=== PATIENT | male | born 1970 | race Caucasian/White ===

== ENCOUNTER 2019-04-28 18:59 | Emergency (ER) | payer SELFPAY ==
[2019-04-28] VITALS (24 sets, daily range): BP systolic 106–152; BP diastolic 68–92; PULSE 64–87; RESP 18–20; TEMP 37.6; O2SAT 94–98
--- NOTE | 2019-04-28 19:10 | DI.CT_ITS ---
SYMPTOM/DIAGNOSIS: CRUSHING CHEST PAIN, RT ARM PAIN, LT FACIAL DROOP NONCONTRAST HEAD CT: There are no prior comparison exams. There is a 6 mm. rounded, high attenuation lesion in the left frontoparietal region in the centrum semiovale. There is no significant surrounding edema. There are no underlying calcifications. The findings could represent a small hemorrhage versus cavernous malformation. The ventricles are normal in size. There is some mucosal thickening at the floors of the maxillary sinuses as well as mucus retention within the ethmoid sinuses. The mastoid air cells appear clear. IMPRESSION: 6 mm. high attenuation focus in the left centrum semiovale may represent a small hemorrhage versus cavernous malformation. CTA OF THE HEAD: CT angiography was performed with multi slice acquisition and multi planar and 3D reconstruction. There is no evidence of dissection, visible stenosis or aneurysm. IMPRESSION: Negative CTA of the head. CTA OF THE NECK: CT angiography was performed with multi slice acquisition and multi planar and 3D reconstruction. The vessels are well opacified. There is no evidence of dissection, occlusion or significant stenosis. There is minimal plaque in the right and left common carotid bulbs. IMPRESSION: Mild plaque in the common carotid bulbs. No significant stenosis, occlusion or dissection. CTA OF THE CHEST, ABDOMEN AND PELVIS: CT angiography was performed with multi slice acquisition and multi planar and 3D reconstruction. There is no evidence of aortic dissection or pulmonary emboli. There are no pleural or pericardial effusions. There is a 6 mm., smoothly marginated nodule seen in the right middle lobe and an additional 3 mm. nodule adjacent. These likely represent benign granulomatous disease. There is no evidence of adenopathy or acute infiltrates. The heart size is normal. The aorta is normal in diameter. Coronary artery calcifications are seen. There is atherosclerotic change of the distal abdominal aorta as well as proximal arteries without evidence of aneurysm or significant stenosis. The liver, gallbladder, spleen, adrenals, pancreas and kidneys are unremarkable. The urinary bladder and bowel as well as prostate appear normal. Degenerative changes are seen in the spine. IMPRESSION: No acute abnormality.
[2019-04-28 19:29] LABS: Abs Immature Grans 0.01 k/cumm (0.0-0.09); Absolute Basophil Count 0.05 k/cumm (0.0-0.2); Absolute Eosinophil Count 0.26 k/cumm (0.0-0.7); Absolute Neutrophil Count 2.98 k/cumm (1.2-6.7); Basophils % 0.7; Eosinophils % 3.6; HCT 44.7 % (40.0-50.0); Immature Grans % 0.1; Lymphocytes % 43.8; Mean Corp. HGB Concentration 33.6 g/dL (32.0-36.0); Mean Corpuscular Hemoglobin 31.9 pg (27.0-33.0); Mean Corpuscular Volume 95.1 fL (80-95); Mean Platelet Volume 9.7 fL (8.0-11.0); Neutrophils % 40.8; Platelet Count 280 x1000/uL (130-400); RBC Distribution Width 13.6 % (11.8-14.1)
--- NOTE | 2019-04-28 19:30 | NUR.NOTE ---
Nursing Note: To CT via stretcher.
[2019-04-28 19:54] LABS: ALT 27 U/L (12-78); AST 17 U/L (15-37); Albumin 3.9 g/dL (3.4-5.0); Alkaline Phosphatase 92 U/L (46-116); Anion Gap 14.8 mmol/L (3-11); BUN 9 mg/dL (7-18); Bilirubin, Total 0.2 mg/dL (0.2-1.0); CO2 22.2 mmol/L (21.0-32.0); CREATININE 0.77 mg/dL (0.70-1.30); Calcium 8.4 mg/dL (8.5-10.1); Chloride 106 mmol/L (98-107); Glucose 99 mg/dL (70-100); Lipase 164 U/L (73-393); NT-proBNP 17 pg/mL; Potassium 3.8 mmol/L (3.5-5.1); Sodium 143 mmol/L (136-145); Total Protein 7.3 g/dL (6.4-8.2)
--- NOTE | 2019-04-28 19:59 | W.ED.GENAD ---
Discharge Plan Disposition Patient Disposition: [facility] Condition: Stable Discharge Details Chief Complaint: Chest Pain Clinical Impression: Chest pain, Weakness of right arm, Brain lesion, Facial droop Primary Care Provider: None,None ED Provider: Patrick Woods Medical Decision Making This is a pleasant 48-year-old male with no significant past medical history except for tobacco abuse, with no family history of cardiac disease, who presents today with a severe chest pain and chest tightness. Is been present for the last 3 hours. It is been notably worsening without intervention or activity. Exam does demonstrate a slight right upper extremity weakness when compared to the left, however strength is still 5 out of 5 bilaterally. He does have a minimal left-sided facial droop, when compared to the right. Normal sensation though, and otherwise a normal neurologic exam. Differential is certainly concerning for dissection, stroke, [place]. We will evaluate with CTs angiogram of the chest, scan of the head neck, and close monitoring. 2 nitroglycerin were given, the first nitro dropped his pain by 2 points, from a 10 to a 8, however the second nitroglycerin made no changes whatsoever. 9:57pm EKG shows an atypical inverted T wave in lead III, Q waves in V1, no evidence of STEMI. CT angiogram of the chest abdomen demonstrate no evidence of dissection, or aneurysm. No acute abdominal or chest component per virtual radiology. There is evidence of moderate calcifications in the LAD distribution though. There is also a noncalcified pulmonary nodule. CT scan of the head and neck with angiography does demonstrate a 6 mm round hyperdense lesion in the deep white right white matter of the left frontal brain. Exam continues to demonstrate a subtle but present right upper extremity weakness in comparison to the left, and a very mild left-sided facial droop. Troponin is normal, normal hemoglobin normal electrolytes, normal renal function. Lipase is normal. Patient signs and symptoms are concerning for an acute intracranial process. No evidence of acute bleed per virtual radiology. I am also notably concerned for continued cardiac etiology with his persistent symptoms, with clear evidence of cardiac vessel disease on CT scan. I did contact [facility], and currently with his normal troponin, normal EKGs, normal CTA, we started the conversation with neurology in regards to the intracranial lesion. At this time they recommend immediate transfer to the ED for neurology evaluation, and cardiology consultation, and stat MRI. They have no additional medication recommendations at this time. The case was discussed with Dr. Fernandes. Patient will be transferred by paramedics and calyx. The patient remains hemodynamically stable here, blood pressure stable, chest pain appears to be intermittent. I have extensively reviewed the treatment plan with the patient. I have addressed all patient concerns at this time. I have also discussed the plan with the admitting physician and they agree with the current assessment and plan and have agreed to assume responsibility for the patient. All parties demonstrate verbal understanding and agreement with our assessment and plan at this time. At time of transfer the patient was reassessed and continued to demonstrate current medical stability. No signs of acute respiratory distress requiring intubation, hemodynamic instability requiring pressor support, or rapidly declining mental status. The patient is stable for transport. EKG 19: 13 Rate 72, WV 128, QTc 473, QRS 106, sinus rhythm, no significant ST elevations or depressions, atypical inverted T wave in lead III, Q wave is present in V1, however no other significant Q waves. No evidence of Wellens, DDaniel Pickering, or Brugada. EKG 20: 27 Rate 69, WV 132, QTc 476, QRS 102, sinus rhythm, no significant ST elevations or depressions, questionable Q waves in V1, continued inverted T wave in lead III. IMPRESSION: 1. No evidence of pulmonary embolism or aortic dissection. 2. No acute intrathoracic process is identified. 3. Noncalcified pulmonary nodules measuring up to 6.5 mm in size. Please see followup imaging recommendations above. 4. Moderate coronary artery calcification in the LAD distribution. IMPRESSION: 1. No evidence of arterial dissection or aneurysm in the abdomen/pelvis. No evidence of hemodynamically significant arterial occlusive disease. 2. No acute intra-abdominal/intrapelvic process is identified. Thank you for allowing us to participate in the care of your patient. Dictated and Authenticated by: Saleem Marr MD 04/28/2019 8:38 PM Eastern Time ([place] & [place]) IMPRESSION: 1. No evidence of large vessel occlusion. No evidence of arterial dissection or aneurysm/pseudoaneurysm. 2. No acute vascular abnormalities. 3. There is a 6 mm rounded hyperdense lesion in the left frontal deep white matter (centrum semiovale) without associated mass effect or parenchymal edema. No corresponding enhancement is seen locally. 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 The possibility of a small acute hemorrhage is difficult to completely exclude however, and MRI assessment is recommended. 4. THIS REPORT CONTAINS FINDINGS THAT MAY BE CRITICAL TO PATIENT CARE. The findings were verbally communicated via telephone conference with PATRICK WOODS at 8:29 PM EDT on 04/28/2019. The findings were acknowledged and understood. IMPRESSION: 1. No evidence of hemodynamically significant arterial occlusive disease. 2. No evidence of arterial dissection or aneurysm/pseudoaneurysm. 3. Moderate central canal stenosis C5-C6. Moderate bilateral neuroforaminal stenosis C6-C7 and moderate left foraminal stenosis C5-C6. COMMENT: Reference per NASCET criteria for degree of stenosis: Mild: less than 50% stenosis. Moderate: 50- 69% stenosis. Severe: 70-94% stenosis. Near occlusion: 95-99% stenosis. Thank you for allowing us to participate in the care of your patient. Dictated and Authenticated by: Saleem Marr MD 04/28/2019 8:29 PM Eastern Time ([place] & [place]) HPI General Date/Time Provider Initiated Documentation: 04/28/19 19:10. HPI Narrative: This is a 48-year-old male with no past medical history except for regular tobacco abuse who presents today with 2 to 3 hours of severe chest pain and chest tightness. Patient states that the pain came on on its own, and has been notably getting worse over the last hour. He describes it as severe in nature. He denies any ripping sensation. He denies any abdominal pain. Does admit to weakness and tingling in his right arm. He denies any previous episodes like this. He denies any history of [place], dissection, or aneurysm. He denies any vomiting or diarrhea. He denies any headache. He has no other complaints at this time. No other modifying factors. General Stated Complaint: Chest Pain PEDRO: 2 Review of Systems Review of Systems All systems reviewed & are unremarkable except as noted in HPI and below PFSH Social History Smoking/Tobacco Use Status: Current every day Tobacco Type: cigarettes Alcohol Intake: current Alcohol Intake frequency: 3 or more drinks per day Alcohol type: beer Drug use: Never Substance use type: does not use Do you feel safe at home: Yes Do you feel safe in your relationship?: Yes Exam Narrative Exam Narrative: 1.Const: Well-nourished, Well-developed, appearing stated age 2.Eyes: PERRL, no conjunctival injection, and symmetrical lids. 3.ENT: Atraumatic external nose and ears. Moist MM. Neck: Symmetric, trachea midline, No thyromegaly. 4.CVS: +S1/S2, No murmurs or gallops. Peripheral pulses 2+ and equal in all extremities. Brisk capillary refill in all extremities. Radial pulses are +2 bilaterally no reproducible chest pain. 5.RESP: Unlabored respiratory effort. Clear to auscultation bilaterally. No wheezes rales or rhonchi 6.GI: Soft, Nontender/Nondistended, No hepatosplenomegaly. No guarding or rebound. No bounding pulsatile abdominal mass 7.MSK: Normocephalic/Atraumatic, Extremities w/o deformity or ttp No cyanosis or clubbing, slight weakness in the right upper extremity. Strength is still 5 out of 5 bilaterally in the upper and lower extremities. 8.Skin: Warm, Dry. No rashes or lesions. 9.Neuro: All 6 cardinal planes of vision are fully intact. No evidence of rotatory or vertical nystagmus. The patient demonstrated a normal [id number], good dexterity. There was no evidence of dysdiadochokinesia. Patient was able to ambulate without difficulty. There was no wide-based gait. [id number] was normal on testing. Sensation was intact bilaterally. 5 out of 5 strength in all extremities, however the patient did have slight decrease in strength in the right upper extremity. patient was able to verbalize butter cup with no slurring, or miss pronunciation. patient is able to hold bilateral arms up for 5 seconds and there is no pronator drift, patient also holds legs up for 10 seconds bilaterally without any drop. 10.Psych: (AAO) x3. Appropriate mood and affect, mild distress Course Vital Signs Temperature 37.6 C H 04/28/19 19:08 Pulse 76 04/28/19 19:08 Respiratory Rate 20 04/28/19 19:08 Blood Pressure 152/92 H 04/28/19 19:08 Pulse Oximetry 98 04/28/19 19:08 Temperature 37.6 C H 04/28/19 19:08 Temperature Source Tympanic 04/28/19 19:08 Pulse 87 04/28/19 19:25 Pulse Rhythm Regular 04/28/19 19:25 Pulse Strength Normal 06/21/19 19:25 Respiratory Rate 18 04/28/19 19:25 Respiratory Effort Non-Labored 04/28/19 19:25 Respiratory Depth Normal 04/28/19 19:25 Respiratory Pattern Normal 04/28/19 19:25 Blood Pressure 131/85 04/28/19 19:25 Blood Pressure Mean 100 04/28/19 19:25 Blood Pressure Position Supine 04/28/19 19:25 Pulse Oximetry 97 04/28/19 19:25 Oxygen Delivery Method Room Air 04/28/19 19:25 Oxygen Flow Rate 0 04/28/19 19:25 Pain Level 8 04/28/19 19:25 Comment 04/28/19 19:08 Lab/Test Results Lab/Test Results: Laboratory Tests Range/Units 04/28/19 19:18 WBC (4.4-10.8) k/cumm 7.30 RBC (4.50-6.00) m/cumm 4.70 Hgb (13.5-17.5) g/dL 15.0 Hct (40.0-50.0) % 44.7 MCV (80-95) fL 95.1 H MCH (27.0-33.0) pg 31.9 MCHC (32.0-36.0) g/dL 33.6 RDW (11.8-14.1) % 13.6 Plt Count (130-400) x1000/uL 280 MPV (8.0-11.0) fL 9.7 Immature Gran % 0.1 Neutrophils % 40.8 Lymphocytes % 43.8 Monocytes % 11.0 Eosinophils % 3.6 Basophils % 0.7 Absolute Neutrophils (1.2-6.7) k/cumm 2.98 Absolute Lymphocytes (1.2-3.4) k/cumm 3.20 Absolute Monocytes (0.11-0.7) k/cumm 0.80 H Absolute Eosinophils (0.0-0.7) k/cumm 0.26 Absolute Basophils (0.0-0.2) k/cumm 0.05
[2019-04-28 20:04] LABS: Troponin I < 0.05 ng/mL (0.00-0.06)
[2019-04-28] MEDS: Omnipaque 350 MG/ML 100 ML BTL IJ ×2 (20:05→20:08)
--- NOTE | 2019-04-28 20:06 | ED.GENADUL_ITS ---
Discharge Plan Disposition Patient Disposition: [facility] Condition: Stable Discharge Details Chief Complaint: Chest Pain Clinical Impression: Chest pain, Weakness of right arm, Brain lesion, Facial droop Primary Care Provider: None,None ED Provider: Patrick Woods Medical Decision Making This is a pleasant 48-year-old male with no significant past medical history except for tobacco abuse, with no family history of cardiac disease, who pr esents today with a severe chest pain and chest tightness. Is been present for the last 3 hours. It is been notably worsening without intervention or activity. Exam does demonstrate a slight right upper extremity weakness when compared to the left, however strength is still 5 out of 5 bilaterally. He does have a minimal left-sided facial droop, when compared to the right. Normal sensation though, and otherwise a normal neurologic exam. Differential is certainly concerning for dissection, stroke, [place]. We will evaluate with CTs angiogram of the chest, scan of the head neck, and close monitoring. 2 nitroglycerin were given, the first nitro dropped his pain by 2 points, from a 10 to a 8, however the second nitroglycerin made no changes whatsoever. 9:57pm EKG shows an atypical inverted T wave in lead III, Q waves in V1, no evidence of STEMI. CT angiogram of the chest abdomen demonstrate no evidence of dissection, or aneurysm. No acute abdominal or chest component per virtual radiology. There is evidence of moderate calcifications in the LAD distribution though. There is also a noncalcified pulmonary nodule. CT scan of the head and neck with angiography does demonstrate a 6 mm round hyperdense lesion in the deep white right white matter of the left frontal brain. Exam continues to demonstrate a subtle but present right upper extremity weakness in comparison to the left, and a very mild left-sided facial droop. Troponin is normal, normal hemoglobin normal electrolytes, normal renal function. Lipase is normal. Patient signs and symptoms are concerning for an acute intracranial process. No evidence of acute bleed per virtual radiology. I am also notably concerned for continued cardiac etiology with his persistent symptoms, with clear evidence of cardiac vessel disease on CT scan. I did contact [facility], and currently with his normal troponin, normal EKGs, normal CTA, we started the conversation with neurology in regards to the intracranial lesion. At this time they recommend immediate transfer to the ED for neurology evaluation, and cardiology consultation, and stat MRI. They have no additional medication recommendations at this time. The case was discussed with Dr. Fernandes. Patient will be transferred by paramedics and calyx. The patient remains hemodynamically stable here, blood pressure stable, chest pain appears to be intermittent. I have extensively reviewed the treatment plan with the patient. I have addressed all patient concerns at this time. I have also discussed the plan with the admitting physician and they agree with the current assessment and plan and have agreed to assume responsibility for the patient. All parties demonstrate verbal understanding and agreement with our assessment and plan at this time. At time of transfer the patient was reassessed and continued to demonstrate current medical stability. No signs of acute respiratory distress requiring intubation, hemodynamic instability requiring pressor support, or rapidly declining mental status. The patient is stable for transport. EKG 19: 13 Rate 72, SC 128, QTc 473, QRS 106, sinus rhythm, no significant ST elevations or depressions, atypical inverted T wave in lead III, Q wave is present in V1, however no other significant Q waves. No evidence of Wellens, DDaniel Pickering, or Brugada. EKG 20: 27 Rate 69, SC 132, QTc 476, QRS 102, sinus rhythm, no significant ST elevations or depressions, questionable Q waves in V1, continued inverted T wave in lead III. IMPRESSION: 1. No evidence of pulmonary embolism or aortic dissection. 2. No acute intrathoracic process is identified. 3. Noncalcified pulmonary nodules measuring up to 6.5 mm in size. Please see followup imaging recommendations above. 4. Moderate coronary artery calcification in the LAD distribution. IMPRESSION: 1. No evidence of arterial dissection or aneurysm in the abdomen/pelvis. No evidence of hemodynamically significant arterial occlusive disease. 2. No acute intra-abdominal/intrapelvic process is identified. Thank you for allowing us to participate in the care of your patient. Dictated and Authenticated by: Saleem Marr MD 04/28/2019 8:38 PM Eastern Time ([place] & [place]) IMPRESSION: 1. No evidence of large vessel occlusion. No evidence of arterial dissection or aneurysm/pseudoaneurysm. 2. No acute vascular abnormalities. 3. There is a 6 mm rounded hyperdense lesion in the left frontal deep white matter (centrum semiovale) without associated mass effect or parenchymal edema. No corresponding enhancement is seen locally. 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 The possibility of a small acute hemorrhage is difficult to completely exclude however, and MRI assessment is recommended. 4. THIS REPORT CONTAINS FINDINGS THAT MAY BE CRITICAL TO PATIENT CARE. The findings were verbally communicated via telephone conference with PATRICK WOODS at 8:29 PM EDT on 04/28/2019. The findings were acknowledged and understood. IMPRESSION: 1. No evidence of hemodynamically significant arterial occlusive disease. 2. No evidence of arterial dissection or aneurysm/pseudoaneurysm. 3. Moderate central canal stenosis C5-C6. Moderate bilateral neuroforaminal stenosis C6-C7 and moderate left foraminal stenosis C5-C6. COMMENT: Reference per NASCET criteria for degree of stenosis: Mild: less than 50% stenosis. Moderate: 50- 69% stenosis. Severe: 70-94% stenosis. Near occlusion: 95-99% stenosis. Thank you for allowing us to participate in the care of your patient. Dictated and Authenticated by: Saleem Marr MD 04/28/2019 8:29 PM Eastern Time ([place] & [place]) HPI General Date/Time Provider Initiated Documentation: 04/28/19 19:10 . HPI Narrative: This is a 48-year-old male with no past medical history except for regular tobacco abuse who presents today with 2 to 3 hours of severe chest pain and chest tightness. Patient states that the pain came on on its own, and has been notably getting worse over the last hour. He describes it as severe in nature. He denies any ripping sensation. He denies any abdominal pain. Does admit to weakness and tingling in his right arm. He denies any previous episodes like this. He denies any history of [place], dissection, or aneurysm. He denies any vomiting or diarrhea. He denies any headache. He has no other complaints at this time. No other modifying factors. General Stated Complaint: Chest Pain PEDRO: 2 Review of Systems Review of Systems All systems reviewed & are unremarkable except as noted in HPI and below PFSH Social History Smoking/Tobacco Use Status: Current every day Tobacco Type: cigarettes Alcohol Intake: current Alcohol Intake frequency: 3 or more drinks per day Alcohol type: beer Drug use: Never Substance use type: does not use Do you feel safe at home: Yes Do you feel safe in your relationship?: Yes Exam Narrative Exam Narrative: 1.Const: Well-nourished, Well-developed, appearing stated age 2.Eyes: PERRL, no conjunctival injection, and symmetrical lids. 3.ENT: Atraumatic external nose and ears. Moist MM. Neck: Symmetric, trachea midline, No thyromegaly. 4.CVS: +S1/S2, No murmurs or gallops. Peripheral pulses 2+ and equal in all extremities. Brisk capillary refill in all extremities. Radial pulses are +2 bilaterally no reproducible chest pain. 5.RESP: Unlabored respiratory effort. Clear to auscultation bilaterally. No wheezes rales or rhonchi 6.GI: Soft, Nontender/Nondistended, No hepatosplenomegaly. No guarding or rebound. No bounding pulsatile abdominal mass 7.MSK: Normocephalic/Atraumatic, Extremities w/o deformity or ttp No cyanosis or clubbing, slight weakness in the right upper extremity. Strength is still 5 out of 5 bilaterally in the upper and lower extremities. 8.Skin: Warm, Dry. No rashes or lesions. 9.Neuro: All 6 cardinal planes of vision are fully intact. No evidence of rotatory or vertical nystagmus. The patient demonstrated a normal [id number], good dexterity. There was no evidence of dysdiadochokinesia. Patient was able to ambulate without difficulty. There was no wide-based gait. [id number] was normal on testing. Sensation was intact bilaterally. 5 out of 5 strength in all extremities, however the patient did have slight decrease in strength in the right upper extremity. patient was able to verbalize butter cup with no slurring, or miss pronunciation. patient is able to hold bilateral arms up for 5 seconds and there is no pronator drift, patient also holds legs up for 10 seconds bilaterally without any drop. 10.Psych: (AAO) x3. Appropriate mood and affect, mild distress Course Vital Signs Temperature 37.6 C H 04/28/19 19:08 Pulse 76 04/28/19 19:08 Respiratory Rate 20 04/28/19 19:08 Blood Pressure 152/92 H 04/28/19 19:08 Pulse Oximetry 98 04/28/19 19:08 Temperature 37.6 C H 04/28/19 19:08 Temperature Source Tympanic 04/28/19 19:08 Pulse 87 04/28/19 19:25 Pulse Rhythm Regular 04/28/19 19:25 Pulse Strength Normal 04/28/19 19:25 Respiratory Rate 18 04/28/19 19:25 Respiratory Effort Non-Labored 04/28/19 19:25 Respiratory Depth Normal 04/28/19 19:25 Respiratory Pattern Normal 04/28/19 19:25 Blood Pressure 131/85 04/28/19 19:25 Blood Pressure Mean 100 04/28/19 19:25 Blood Pressure Position Supine 04/28/19 19:25 Pulse Oximetry 97 04/28/19 19:25 Oxygen Delivery Method Room Air 04/28/19 19:25 Oxygen Flow Rate 0 04/28/19 19:25 Pain Level 8 04/28/19 19:25 Comment 04/28/19 19:08 Lab/Test Results Lab/Test Results: Laboratory Tests Range/Units 04/28/19 19:18 WBC (4.4-10.8) k/cumm 7.30 RBC (4.50-6.00) m/cumm 4.70 Hgb (13.5-17.5) g/dL 15.0 Hct (40.0-50.0) % 44.7 MCV (80-95) fL 95.1 H MCH (27.0-33.0) pg 31.9 MCHC (32.0-36.0) g/dL 33.6 RDW (11.8-14.1) % 13.6 Plt Count (130-400) x1000/uL 280 MPV (8.0-11.0) fL 9.7 Immature Gran % 0.1 Neutrophils % 40.8 Lymphocytes % 43.8 Monocytes % 11.0 Eosinophils % 3.6 Basophils % 0.7 Absolute Neutrophils (1.2-6.7) k/cumm 2.98 Absolute Lymphocytes (1.2-3.4) k/cumm 3.20 Absolute Monocytes (0.11-0.7) k/cumm 0.80 H Absolute Eosinophils (0.0-0.7) k/cumm 0.26 Absolute Basophils (0.0-0.2) k/cumm 0.05
[2019-04-28 20:16] LABS: INR 0.9 (0.9-1.1); PTT Activated 25.4 sec (21.0-31.4); Prothrombin Time 8.9 sec (9.3-11.0)
[2019-04-28] MEDS: MORPHine 10 MG/ML VIAL 4 MG IVP (20:17)
--- NOTE | 2019-04-28 20:30 | DI.VRAD_ITS ---
EXAM: CT Angiography Head With Contrast EXAM DATE/TIME: 04/28/2019 7:12 PM CLINICAL HISTORY: 48 years old, male; Other: Crushing chest pain RT arm pain lt facial droop TECHNIQUE: Imaging protocol: Axial computed tomographic angiography images of the head with intravenous contrast using CT angiography protocol. Coronal and sagittal reformatted images were created and reviewed. 3D renderinD reconstructed images were created and reviewed. Contrast material: OMNI 350; Contrast volume: 70 ml; Contrast route: IV; COMPARISON: No relevant prior studies available. FINDINGS: Right internal carotid artery: The visualized distal right ICA cervical segment is unremarkable. The right ICA petrous segment is unremarkable. Right ICA cavernous segment is unremarkable. The right ICA supraclinoid segment is unremarkable. Right anterior cerebral artery: Unremarkable. No occlusion or significant stenosis. No aneurysm. The anterior communicating artery is unremarkable. Right middle cerebral artery: Unremarkable. No occlusion or significant stenosis. No aneurysm. Right posterior cerebral artery: Unremarkable. No occlusion or significant stenosis. No aneurysm. Right vertebral artery: Unremarkable. No occlusion or significant stenosis. No aneurysm. Left internal carotid artery: The visualized distal left ICA cervical segment is unremarkable. The left ICA petrous segment is unremarkable. Left ICA cavernous segment is unremarkable. The left ICA supraclinoid segment is unremarkable. Left anterior cerebral artery: Unremarkable. No occlusion or significant stenosis. No aneurysm. Left middle cerebral artery: Unremarkable. No occlusion or significant stenosis. No aneurysm. Left posterior cerebral artery: Unremarkable. No occlusion or significant stenosis. No aneurysm. Left vertebral artery: Unremarkable. No occlusion or significant stenosis. No aneurysm. Basilar artery: Unremarkable. No occlusion or significant stenosis. No aneurysm. Dural sinuses/cerebral veins: The dural venous sinuses and major cortical veins enhance appropriately without evidence of thrombosis. HEAD: Brain: The noncontrast head CT demonstrates a 6 mm rounded focus of hyperdensity in the left centrum semiovale on series 7 image 39. This measures 60 Hounsfield units average density. There is no surrounding parenchymal hypodensity or local mass effect. No corresponding vascularity was seen in this region on the CT angiography images. Overall, I would favor that this most likely represents a small cavernous malformation. This is not definitive however and it is difficult to fully exclude a small parenchymal hemorrhage at this point. MRI of the brain is recommended to evaluate for chronic hemosiderin deposition, which would confirm a small cavernous malformation. No enhancing brain lesions or vascular malformations are identified on the angiographic images. IMPRESSION: 1. No evidence of large vessel occlusion. No evidence of arterial dissection or aneurysm/pseudoaneurysm. 2. No acute vascular abnormalities. 3. There is a 6 mm rounded hyperdense lesion in the left frontal deep white matter (centrum semiovale) without associated mass effect or parenchymal edema. No corresponding enhancement is seen locally. 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 The possibility of a small acute hemorrhage is difficult to completely exclude however, and MRI assessment is recommended. 4. THIS REPORT CONTAINS FINDINGS THAT MAY BE CRITICAL TO PATIENT CARE. The findings were verbally communicated via telephone conference with JOHNIE WOODS at 8:29 PM EDT on 04/28/2019. The findings were acknowledged and understood. EXAM: CT Angiography Neck With Contrast EXAM DATE/TIME: 04/28/2019 7:12 PM CLINICAL HISTORY: 48 years old, male; Other: Crushing chest pain RT arm pain lt facial droop TECHNIQUE: Imaging protocol: Axial computed tomographic angiography images of the neck with intravenous contrast using CT angiography protocol. Coronal and sagittal reformatted images were created and reviewed. 3D rendering: MIP reconstructed images were created and reviewed. Radiation optimization: All CT scans at this facility use at least one of these dose optimization techniques: automated exposure control; mA and/or kV adjustment per patient size (includes targeted exams where dose is matched to clinical indication); or iterative reconstruction. Contrast material: OMNI 350; Contrast volume: 70 ml; Contrast route: IV; COMPARISON: No relevant prior studies available. FINDINGS: VASCULATURE: Right common carotid artery: Normal. No significant stenosis. No dissection or occlusion. Right internal carotid artery: Minimal mixed plaque in the right carotid bulb without stenosis. The right ICA cervical segment is otherwise unremarkable. Right external carotid artery: Normal. No occlusion or significant stenosis. Right vertebral artery: Normal. No significant stenosis. No dissection or occlusion. Left common carotid artery: Mild soft plaque in the distal left CCA without stenosis. Left internal carotid artery: Mild mixed plaque in left carotid bulb without stenosis. Left external carotid artery: Normal. No occlusion or significant stenosis. Left vertebral artery: Normal. No significant stenosis. No dissection or occlusion. Subclavian arteries: The visualized right subclavian artery is unremarkable. The visualized left subclavian artery is unremarkable. Brachiocephalic artery: The brachiocephalic artery is unremarkable. Aorta: The visualized aortic arch is unremarkable, demonstrating no evidence of aneurysm or dissection. NECK: Thyroid: The thyroid gland is unremarkable. Bones/joints: No acute osseous abnormalities are identified. There is moderate degenerative disc space narrowing and marginal spurring at C5-C6. The 4 mm posterior spondylotic ridge protrudes to moderate central canal stenosis with an AP thecal sac dimension of 7.3 mm. Moderate left foraminal stenosis C5-C6. Moderate bilateral neuroforaminal stenosis C6-C7. Soft tissues: No significant soft tissue swelling or hematoma. Lungs: The visualized pulmonary apices are clear. IMPRESSION: 1. No evidence of hemodynamically significant arterial occlusive disease. 2. No evidence of arterial dissection or aneurysm/pseudoaneurysm. 3. Moderate central canal stenosis C5-C6. Moderate bilateral neuroforaminal stenosis C6-C7 and moderate left foraminal stenosis C5-C6. COMMENT: Reference per NASCET criteria for degree of stenosis: Mild: less than 50% stenosis. Moderate: 50-69% stenosis. Severe: 70-94% stenosis. Near occlusion: 95-99% stenosis. Dictated and Authenticated by: Saleem Marr MD. Ordering:MARILU Nguyen MD
== END 2019-04-28 22:16 | disposition short-term general hospital (02) ==
PROVIDERS: Emergency Provider Student in an Organized Health Care Education/Training Program
DX: R07.9 Chest pain, unspecified (principal); R53.1 Weakness; R29.810 Facial weakness; G93.9 Disorder of brain, unspecified
CPT/HCPCS: 36415; 70496; 70498; 71275; 74175; 80053; 83690; 93005; 96361; 96374; 99285; 83880; 84484; 85025; 85610; 85730; 93010; J2270; J3490